=== PATIENT | female | born 2000 | race Two or more races ===

== ENCOUNTER 2025-05-30 23:33 | Emergency (ER) | payer OTHER ==
[~2025-05-30] VITALS: Ht 162.6 cm; Wt 71.0 kg
[2025-05-30] MEDS ORDERED: ACETAMINOPHEN 500 MG TAB PO ONE (23:45)
[2025-05-31] MEDS ORDERED: VENTOLIN HFA18 GM
[2025-05-31] MEDS ORDERED: NEXPLANON68 MG SUB-Q (00:01)
[2025-05-31] MEDS ORDERED: EPIN0.3P IM (00:01)
[2025-05-31] MEDS ORDERED: KETOROLAC TROMETHAMINE 30 MG/ML VIAL IV ONE (00:45)
[2025-05-31] MEDS ORDERED: LACTATED RINGER'S 1,000 ML IV ONE (00:45)
[2025-05-31 02:21] VITALS: BP 108/77
== END 2025-05-31 02:23 | disposition home or self-care (01) ==
LOC: ED 23:33
DX: G43.919 Migraine, unspecified, intractable, without status migrainosus (principal); Z91.030 Bee allergy status; Z79.899 Other long term (current) drug therapy
CPT/HCPCS: 96372; 96374; 99283-25; A9270; J1885; J3030; J7121